=== PATIENT | female | born 2000 | race African-American/Black ===

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

== ENCOUNTER 2018-11-26 18:51 | Emergency (ER) | payer MEDICAID ==
[~2018-11-26] VITALS: Ht 160 cm; Wt 76.4 kg
[2018-11-26 18:55] VITALS: Ht 160 cm; Wt 76.4 kg
[2018-11-26] MEDS ORDERED: CLARITIN 10 MG10 MG PO (18:57)
[2018-11-26] MEDS ORDERED: VOLTAREN75 MG PO (20:54)
[2018-11-26] MEDS ORDERED: BACLOFEN20 M1 PO (20:54)
[2018-11-26 21:34] VITALS: BP 123/74
== END 2018-11-26 21:35 | disposition home or self-care (01) ==
LOC: D.ER 18:51
DX: S16.1XXA Strain of muscle, fascia and tendon at neck level, initial encounter (principal); V43.52XA Car driver injured in collision with other type car in traffic accident, initial encounter

== ENCOUNTER 2019-05-22 23:51 | Emergency (ER) | payer MEDICAID ==
[~2019-05-22] VITALS: Ht 160 cm; Wt 72.7 kg
[~2019-05-22 23:51] MED LIST changes: +BACLOFEN20 M1 PO; +CLARITIN 10 MG10 MG PO; +VOLTAREN75 MG PO
[2019-05-23 00:06] VITALS: Ht 160 cm; Wt 72.7 kg
[2019-05-23] MEDS ORDERED: FLAGYL500 MG PO (00:46)
[2019-05-23 00:59] LABS: APPEARANCE CLOUDY (CLEAR); BILIRUBIN NEGATIVE (NEGATIVE); COLOR YELLOW (YELLOW); GLUCOSE NEGATIVE (NEGATIVE); KETONE SMALL mg/dL (NEGATIVE); NITRITE NEGATIVE (NEGATIVE); PROTEIN TRACE mg/dL (NEGATIVE); UROBILINOGEN NORMAL (NORMAL)
[2019-05-23 01:02] LABS: BACTERIA MODERATE /hpf (NEGATIVE); EPITHELIAL CELLS 0-5 /hpf (0-5); MUCUS >1+ /lpf (NONE SEEN); RED CELLS - URINE 0-5 /hpf (0-5); WHITE CELLS - URINE 0-5 /hpf (NEGATIVE)
[2019-05-23 01:29] VITALS: BP 116/73
[2019-05-26 03:07] LABS: CHLAMYDIA TRACHOMATIS, NAA Negative (Negative)
== END 2019-05-23 01:30 | disposition home or self-care (01) ==
LOC: D.ER 23:51
PROVIDERS: Family Medicine
DX: N89.8 Other specified noninflammatory disorders of vagina (principal)

== ENCOUNTER 2019-06-03 16:38 | Emergency (ER) | payer MEDICAID ==
[~2019-06-03] VITALS: Ht 160 cm; Wt 73.6 kg
[~2019-06-03 16:38] MED LIST changes: +FLAGYL500 MG PO
[2019-06-03 16:42] VITALS: Ht 160 cm; Wt 73.6 kg
[2019-06-03 16:59] LABS: BASOPHILS 0.1 % (0-2); EOSINOPHILS 0.5 % (0-7); HEMATOCRIT 42.9 % (36.0-48.0); HEMOGLOBIN 14.6 g/dL (12-16); IMMATURE GRANULOCYTES 0.1 % (0-5); LYMPHOCYTES 31.1 % (15-50); MCH 29.9 pg (26.0-34.0); MCV 87.9 fL (80.0-100.0); MEAN PLATELET VOLUME 9.7 fL (7.4-10.4); MONOCYTES 11.6 % (2-11); NEUTROPHILS 56.6 % (40-80); PLATELET COUNT 322 10x3/uL (130-400); RBC 4.88 10x6/uL (4.00-5.40); RDW 12.8 % (11.5-14.5); WBC 7.4 10x3/uL (4.8-10.8)
[2019-06-03 17:00] LABS: APPEARANCE CLEAR (CLEAR); BILIRUBIN NEGATIVE (NEGATIVE); COLOR YELLOW (YELLOW); GLUCOSE NEGATIVE (NEGATIVE); KETONE SMALL mg/dL (NEGATIVE); NITRITE NEGATIVE (NEGATIVE); PROTEIN NEGATIVE (NEGATIVE); SPECIFIC GRAVITY 1.015 (1.005-1.020); UROBILINOGEN NORMAL (NORMAL)
[2019-06-03 17:07] LABS: CALC OSMOLALITY 262 mosm/kg (275-300); CALCIUM 9.3 mg/dL (8.5-10.1); CARBON DIOXIDE 28.5 mmol/L (21.0-32.0); CHLORIDE - SERUM 98 mmol/L (98-107); CREATININE - SERUM 0.8 mg/dL (0.6-1.3); GLUCOSE 87 mg/dL (74-106); POTASSIUM - SERUM 3.4 mmol/L (3.5-5.1); SODIUM 133 mmol/L (136-145); UREA NITROGEN 7 mg/dL (7-18); eGFR NON AFRICAN AMERICAN > 90 mL/min (90-120)
[2019-06-03 17:08] LABS: HCG SERUM POSITIVE (NEGATIVE)
[2019-06-03 17:33] LABS: ALBUMIN 4.1 g/dL (3.4-5.0); ALKALINE PHOSPHATASE 78 U/L (46-116); ALT (SGPT) 31 U/L (10-68); AMYLASE - SERUM 80 U/L (25-115); BILIRUBIN - TOTAL 1.02 mg/dL (0.2-1.3); HCG - QUANTITATIVE (MATERNAL) 119755 mIU/mL; LIPASE 288 U/L (73-393); PROTEIN - SERUM 8.4 g/dL (6.4-8.2)
[2019-06-03] MEDS ORDERED: ZOFRAN4 MG PO (18:09)
[2019-06-03 18:36] VITALS: BP 111/68
== END 2019-06-03 18:37 | disposition home or self-care (01) ==
LOC: D.ER 16:38
PROVIDERS: Family Medicine
DX: O21.9 Vomiting of pregnancy, unspecified (principal); Z3A.08 8 weeks gestation of pregnancy

== ENCOUNTER 2019-07-09 10:56 | Observation (INO) | payer MEDICAID ==
[~2019-07-09] VITALS: Ht 160 cm; Wt 65.0 kg
[~2019-07-09 10:56] MED LIST changes: +ZOFRAN4 MG PO
[2019-07-09] MEDS ORDERED: REGLAN10 MG PO (11:12)
[2019-07-09] MEDS ORDERED: ZOFRAN4 MG PO (11:12)
[2019-07-09 11:41] LABS: BASOPHILS 0 % (0-2); EOSINOPHILS 0.7 % (0-7); HEMATOCRIT 38.5 % (36.0-48.0); HEMOGLOBIN 13.5 g/dL (12-16); IMMATURE GRANULOCYTES 0.2 % (0-5); LYMPHOCYTES 24.8 % (15-50); MCH 30.1 pg (26.0-34.0); MCHC 35.1 g/dL (31.0-37.0); MCV 85.7 fL (80.0-100.0); MEAN PLATELET VOLUME 9.9 fL (7.4-10.4); MONOCYTES 10.4 % (2-11); NEUTROPHILS 63.9 % (40-80); PLATELET COUNT 298 10x3/uL (130-400); RBC 4.49 10x6/uL (4.00-5.40); RDW 13.5 % (11.5-14.5); WBC 4.4 10x3/uL (4.8-10.8)
--- NOTE | 2019-07-09 11:41 | NUR ---
FHT 154
[2019-07-09 11:46] LABS: APPEARANCE CLEAR (CLEAR); BILIRUBIN NEGATIVE (NEGATIVE); COLOR DK YELLOW (YELLOW); GLUCOSE NEGATIVE (NEGATIVE); KETONE LARGE mg/dL (NEGATIVE); NITRITE NEGATIVE (NEGATIVE); PROTEIN 1+ mg/dL (NEGATIVE)
[2019-07-09 11:47] LABS: BACTERIA FEW /hpf (NEGATIVE); EPITHELIAL CELLS 0-5 /hpf (0-5); RED CELLS - URINE RARE /hpf (0-5); WHITE CELLS - URINE 0-5 /hpf (NEGATIVE)
[2019-07-09 12:14] LABS: CALC OSMOLALITY 261 mosm/kg (275-300); CALCIUM 9.5 mg/dL (8.5-10.1); CARBON DIOXIDE 19.3 mmol/L (21.0-32.0); CHLORIDE - SERUM 100 mmol/L (98-107); CREATININE - SERUM 0.6 mg/dL (0.6-1.3); GLUCOSE 76 mg/dL (74-106); POTASSIUM - SERUM 3.1 mmol/L (3.5-5.1); SODIUM 133 mmol/L (136-145); UREA NITROGEN 4 mg/dL (7-18); eGFR NON AFRICAN AMERICAN > 90 mL/min (90-120)
[2019-07-09 12:42] LABS: ALBUMIN 3.4 g/dL (3.4-5.0); ALKALINE PHOSPHATASE 91 U/L (46-116); ALT (SGPT) 396 U/L (10-68); BILIRUBIN - TOTAL 1.89 mg/dL (0.2-1.3); HCG - QUANTITATIVE (MATERNAL) 72174 mIU/mL; PROTEIN - SERUM 7.6 g/dL (6.4-8.2)
[2019-07-09 14:11] VITALS: BP 110/68
--- NOTE | 2019-07-09 14:47 | NUR ---
NS @ 100ML/HR CONTINUED TO FLOOR
--- NOTE | 2019-07-09 14:55 | NUR ---
RECEIVED PT FROM ER VIA WC. PT AMBULATES TO BED PER SELF. PT HOLDING IV BAG OF NS, NOTED TO BE DISCONNECTED FROM SALINE LOCK IN LEFT AC. SITE IN LEFT AC C/D/I. DR RANKIN IN ROOM TO ASSESS PT AND EXPLAIN POC. PT VERBALIZES UNDERSTANDING.
--- NOTE | 2019-07-09 16:10 | NUR ---
PT IN HIGH FOWLERS POSITION. PT DENIES ACTIVE VOMITING SINCE ARRIVING TO UNIT AND STATES THAT SHE HASN'T HELD ANYTHING DOWN "EVER" AND THAT IS WHY SHE HERE. MEDS GIVEN ORDERED, SEE EMAR. BANANA BAG HUNG AT 333ML/HR VERBALLY ORDERED BY DR RANKIN. ADMISSION ASSESSMENTS COMPLETED, SEE FLOW SHEETS. FHTS 150S VIA DOPPLAR IN LEFT LOWER QUADRANT. BOWEL SOUNDS ACTIVE X 4. PT REPORTS PASSING FLATUS BUT DENIES HAVING BM IN AT LEAST 7 DAYS. PT REPORTS THAT SHE HAS BEEN VOMITING UP YELLOW FLUID SINCE SHE WOKE UP THIS MORNING AND THAT SHE COULDNT EVEN HOLD DOWN HER HOME MEDS TO TRY TO STOP IT. PT DENIES ANY PAIN. EXPLAINED TO PT THAT SHE IS STRICT NPO AND STRICT I&0. LIP BALM AND GLYCERIN SWABS PROVIDED PER PT REQUEST. PT DENIES FURTHER NEEDS AT THIS TIME.
[2019-07-09] MEDS ORDERED: VITAMIN B-625 MG PO (16:22)
[2019-07-09 16:52] VITALS: BP 110/67; Ht 160 cm; Wt 65.0 kg
--- NOTE | 2019-07-09 17:45 | NUR ---
PT FAMILY TO ROOM. EXPLAINED TO FAMILY PT STRICT NPO STATUS. ALL VERBALIZE UNDERSTANDING.
--- NOTE | 2019-07-09 19:30 | NUR ---
PT ASKING IF SHE CAN EAT OR DRINK SOON EXPLAINED NURSE WILL REVIEW ORDERS AND LET HER KNOW STEVE.
--- NOTE | 2019-07-09 19:40 | NUR ---
BANANA BAG COMPLETED D5 1/2 NS BOLUS BEGAN PER ORDER
--- NOTE | 2019-07-09 19:50 | NUR ---
REVIEWED ORDERS WITH PATIENT OF FLUID BOLUSES AND NPO STATUS. EXPLAINED TO THE PATIENT WE WILL KEEP HER HYDRATED AND LET HER STOMACH REST TO SEE IF THE NAUSEA AND VOMITING WILL SUBSIDE. PATIENT VERBALIZED UDNERSTANDING.
--- NOTE | 2019-07-09 20:15 | NUR ---
PT REC'D IN BED AT THIST EMMANUEL. WATCHING TV AND TEXTING. PT DENIES ANY NAUSEA. NO VOMITING NOTED. SEE ASSESSEMT PER FLOWSHEET. Ari KABA RN
[2019-07-09 20:16] VITALS: BP 99/55
--- NOTE | 2019-07-09 20:50 | NUR ---
FLUIDS CHANGED IV IN LEFT AC EITHOUT REDNESS OR SWELLING PATIENT DENIES NEEDS AT THIS TIME
--- NOTE | 2019-07-09 21:00 | NUR ---
FHTS VIA DOPPLER AT THIS TIME 145. PT VERBALIZES NO NEEDS AT THIS TIME. Ari KABA RN
--- NOTE | 2019-07-09 22:28 | NUR ---
REGLAN GIVEN SIVP. NO NEEEDS VERBALIZED. NO VOMITING NOTED. Ari KABA RN
--- NOTE | 2019-07-10 00:14 | NUR ---
SOLUMEDROL 20 MG GIVEN IVP. NO VOMITING NOTED. PT VERBALIZES NO NAUSEA. IV SITE REMIANS PATENT . Ari KABA RN
--- NOTE | 2019-07-10 03:16 | NUR ---
NEW BAG OF IV FLUID UP AT 0315. NO NAUSEA PER PATIENT AND NO VOMITING NOTE. PT WANTING TO EAT AT THIS TIME. Ari KABA. RN
[2019-07-10 07:04] LABS: ALBUMIN 2.7 g/dL (3.4-5.0); ALKALINE PHOSPHATASE 77 U/L (46-116); ALT (SGPT) 311 U/L (10-68); CALCIUM 8.6 mg/dL (8.5-10.1); CARBON DIOXIDE 18.4 mmol/L (21.0-32.0); CHLORIDE - SERUM 104 mmol/L (98-107); CREATININE - SERUM 0.5 mg/dL (0.6-1.3); POTASSIUM - SERUM 3.5 mmol/L (3.5-5.1); PROTEIN - SERUM 5.8 g/dL (6.4-8.2); SODIUM 132 mmol/L (136-145); eGFR NON AFRICAN AMERICAN > 90 mL/min (90-120)
[2019-07-10 07:07] LABS: CALC OSMOLALITY 263 mosm/kg (275-300); GLUCOSE 159 mg/dL (74-106); UREA NITROGEN 1 mg/dL (7-18)
--- NOTE | 2019-07-10 07:15 | NUR ---
CLEAR LIQUID DIET SERVED, ORDERS VERIFIED PER PT REQUEST. REASSURED HER THAT MD HAD PLACED THE ORDER AND WAS OK FOR HER TO GO AHEAD AND EAT. DENIES NAUSEA AT THIS TIME.
--- NOTE | 2019-07-10 07:45 | NUR ---
SOLU MEDROL IV SCANNED TO EMAR. PT CONTINUE TO DENY NAUSEA AND DENIES ANY NEEDS AT THIS TIME.
--- NOTE | 2019-07-10 09:30 | NUR ---
CALLED TO ROOM, PT ASKING WHEN SHE WOULD BE ABLE TO D/C HOME. UNDERSTANDS THAT MD WOULD BE CONTACTED WITH HER REQUEST.
--- NOTE | 2019-07-10 10:12 | NUR ---
DR RANKIN ON UNIT REPORT GIVEN OF PT REQUEST TO D/C, AND THAT SHE HAS NOT HAD ANY VOMITING AND DENIES NAUSEA ALSO THAT SHE WAS ABLE TO CONSUME OVER 50% OF CLEAR LIQUID DIET AT 0730. ORDERS RECEIVED FOR D/C WITH WRITTEN SCRIPTS FOR MEDROL DOSE JIAN, PEPCID 20MG, REGLAN 10MG AND ZOFRAN 4MG ODT. PRINTED INTSTRUCTIONS ON EACH SCRIPT, REFLUX AND FOODS TO AVOID DURING . SHE STATES HER UNDERSTANDING AND DENIES QUESTIONS. HAS APPOINTMENT WITH DR SHEA ON 07/18/19. IV D/C FROM LEFT AC WITH CATH INTACT.
--- NOTE | 2019-07-10 10:30 | NUR ---
VERBAL AND WRITTEN D/C INSTRUCTIONS COMPLETED. PT ASK IF SHE COULD WEIGH HERSELF PRIOR TO LEAVING. SCALE BROGHT TO ROOM..155LBS. TAKEN OUT TO CAR BY WHEELCHAIR AND HOME WITH FAMILY MEMBER.
[2019-07-11 13:09] LABS: HEPATITIS C ANTIBODY <0.1 S/CO RAT (0.0-0.9)
== END 2019-07-10 10:30 | disposition home or self-care (01) ==
LOC: D.ER 10:56 → D.LD 13:52 → OBSVTIME 13:52 → D.LD 13:52
PROVIDERS: Family Medicine; ADMIT Obstetrics & Gynecology; ATTEND Obstetrics & Gynecology
DX: O21.0 Mild hyperemesis gravidarum (principal); Z3A.14 14 weeks gestation of pregnancy

== ENCOUNTER 2019-12-28 13:52 | Inpatient (IN) | payer OTHER ==
[~2019-12-28] VITALS: Ht 160 cm; Wt 79.8 kg
[~2019-12-28 13:52] MED LIST changes: +REGLAN10 MG PO; +VITAMIN B-625 MG PO
[2019-12-29] VITALS (10 sets, daily range): BP systolic 118–143; BP diastolic 73–96; Ht 160 cm; Wt 79.8 kg
[2019-12-29] MEDS ORDERED: PRENAVITE1 TAB (06:03)
[2019-12-29 06:36] LABS: HEMATOCRIT 27.7 % (36.0-48.0); HEMOGLOBIN 8.6 g/dL (12-16); MCH 24.1 pg (26.0-34.0); MCV 77.6 fL (80.0-100.0); MEAN PLATELET VOLUME 8.9 fL (7.4-10.4); RBC 3.57 10x6/uL (4.00-5.40); RDW 15.8 % (11.5-14.5); WBC 7.2 10x3/uL (4.8-10.8)
[2019-12-29 06:38] LABS: BILIRUBIN NEGATIVE (NEGATIVE); GLUCOSE NEGATIVE (NEGATIVE); KETONE NEGATIVE (NEGATIVE); NITRITE NEGATIVE (NEGATIVE); SPECIFIC GRAVITY 1.015 (1.005-1.020); UROBILINOGEN NORMAL (NORMAL)
[2019-12-29 06:39] LABS: BACTERIA MODERATE /hpf (NEGATIVE); RED CELLS - URINE 0-5 /hpf (0-5)
--- NOTE | 2019-12-29 10:00 | NUR ---
rec'd from recovery, assessment completed, fundus firm, u-1, lochia small, rating pain 7/10, ice pack placed on incisional site, oriented to room and to call light.
--- NOTE | 2019-12-29 11:30 | NUR ---
at bedside, able to move lower extremities, john pads changed, cavazos draining clear yellow urine, fundus firm u-1
--- NOTE | 2019-12-29 12:47 | NUR ---
in room @1225, pt c/o vomiting, noted aprox 200ml emesis, medicated w/ zofran effectively, john care given. noted aprox 5 cm clot passed, fundus firm, u-1, lochia small,denies further needs at this time
--- NOTE | 2019-12-29 13:30 | NUR ---
called to bedside, pt states she vomited her chicken broth, denies nausea, states it just came up w/o warning. requesting crackers, encouraged to stick with clear liquids as ordered until tolerating liquids well
[2019-12-29 14:10] LABS: BASOPHILS 0.1 % (0-2); EOSINOPHILS 0.2 % (0-7); HEMATOCRIT 30.2 % (36.0-48.0); HEMOGLOBIN 9.4 g/dL (12-16); IMMATURE GRANULOCYTES 0.3 % (0-5); LYMPHOCYTES 10.7 % (15-50); MCH 24.9 pg (26.0-34.0); MCHC 31.1 g/dL (31.0-37.0); MEAN PLATELET VOLUME 8.5 fL (7.4-10.4); MONOCYTES 7.8 % (2-11); NEUTROPHILS 80.9 % (40-80); RBC 3.78 10x6/uL (4.00-5.40); RDW 16.4 % (11.5-14.5)
[2019-12-29 14:17] LABS: MCV 79.9 fL (80.0-100.0); PLATELET COUNT 264 10x3/uL (130-400); WBC 10.6 10x3/uL (4.8-10.8)
--- NOTE | 2019-12-29 14:18 | NUR ---
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
--- NOTE | 2019-12-29 14:22 | NUR ---
h/h results called to dr bess, no new orders rec'd
--- NOTE | 2019-12-29 15:05 | NUR ---
called to room, pt states she vomited after eating sherbert, denies nausea states "it just came up" states she has had a problem with reflux, listened to bowel sounds noted active x 4 quadrants but noted slightly sluggish. encouraged to have only ice chips until bowel sounds improve. acknowledged understanding
--- NOTE | 2019-12-29 15:24 | NUR ---
CALL TO DR SHEA, REPORT GIVEN OF PT COMPLAINT OF REFLUX W/ VOMITING. ORDERS REC'D AND NOTED
--- NOTE | 2019-12-29 15:41 | NUR ---
pt c/o itching, no rashing noted, requesting benadryl, will talk w/ dr bess
--- NOTE | 2019-12-29 17:40 | NUR ---
at bedside, pt holding attempting bottle feed, fundus firm, lochia scant, u/-1, states is beginning to feel better, may decide to try some broth in an hour or so. informed would be back around 1814 for john care, pt stated to go ahead and bring sprite and broth at that time
--- NOTE | 2019-12-29 18:10 | NUR ---
john care given, scant lochia, chicken broth and sprite given
--- NOTE | 2019-12-29 21:17 | NUR ---
RN TO PT BEDSIDE FOR SHIFT ASSESSMENT. LA CATHETER IN PLACE, 50ML IN UROMETER AT THIS TIME. 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 FUNDUS IS FIRM, MIDLINE, 2 BELOW, SCDS ON, BED IN LOWEST POSITION, SIDE RAILS UPX2, CALL LIGHT IN REACH, FRIEND AT BEDSIDE, IN CRIB AT BEDSIDE.
--- NOTE | 2019-12-29 23:43 | NUR ---
RN TO BEDSIDE, LA CATHETER REMOVED 375ML IN LA BAG, IV FLUIDS D/C'D. PT ASSISTED TO AMBULATORY POSITION, PT TO BATHROOM, UNABLE TO VOID AT THIS TIME. PT GIVEN SPONGE BATH, LINENS CHANGED, PT PROVIDED WITH DISPOSABLE BRIEFS AND ZANDER PADS, DRESSING TO ABDOMINAL INCISION CLEAN, DRY, AND INTACT. PT ABULATED BACK TO BED WITH RN STANDBY ASSISTANCE. PT'S GAIT STEADY. BED IN LOWEST POSITION, CALL LIGHT IN REACH, SIDE RAILS UPX2.
--- NOTE | 2019-12-30 01:30 | NUR ---
PT REC'D IN BED ASLEEP AT THIS TIME. RESPS EVEN AND UNLABORED. Ari KABA RN
[2019-12-30 04:13] VITALS: BP 129/81
--- NOTE | 2019-12-30 04:23 | NUR ---
RN TO PT BEDSIDE FOR ROUNDING, VSS. PT STATES PAIN IS 5/10, NORCO 10 PO GIVEN PER MD ORDERS. FUNDUS FIRM, MIDLINE, 2 BELOW, PT VOIDED 150ML TO URINE HAT. PT STATES ALL OTHER NEED CURRENTLY MET. BED IN LOWEST POSITION, CALL LIGHT IN REACH, SIDE RAILS UPX2.
[2019-12-30 06:08] LABS: RAPID PLASMA REAGIN Non Reactive (Non Reactive)
[2019-12-30 07:18] VITALS: BP 131/83
--- NOTE | 2019-12-30 07:18 | NUR ---
AM ASSESSMENT COMPLETED, SITTING UPRIGHT IN BED, SKIN WARM AND DRY, COLOR WNL, RESP EVEN AND UNLABORED, LUNGS CTAB, HEART RRR, ABD SOFT AND MILDLY TENDER TO LIGHT TOUCH, FUNDUS FIRM AT U/3 AND MIDLINE, DENIES PASSING ANY CLOTS SINCE YESTERDAY, LOCHIA RUBRA MODERATE AMOUNT, DENIES PASSING FLATUS, LOW TRANSVERSE PRESSURE DRESSING IN PLACE OVER ABDOMINAL INCISION WITHOUT DRAINAGE, RATES PAIN 4-5 ON NUMERIC PAIN SCALE AT THIS TIME, REVIEWED NEXT DOSE AVAILABLE TIME AND PT STATES UNDERSTANDING. REVIEWED POC FOR TODAY TO INCLUDE AMBULATION IN HALLS, SHOWER, AND PAIN MANAGEMENT. PT STATES UNDERSTANDING OF ALL INFORMATION REVIEWED. PT MOTHER AT BS WITH PT'S IN ARMS, CALL LIGHT WITHIN EASY REACH OF PT, SIDE RAILS UP X2, BED IN LOW POSITION. CONTINUE TO MONITOR.
[2019-12-30 07:21] LABS: BASOPHILS 0.1 % (0-2); EOSINOPHILS 0.6 % (0-7); HEMATOCRIT 29.3 % (36.0-48.0); HEMOGLOBIN 8.9 g/dL (12-16); IMMATURE GRANULOCYTES 0.3 % (0-5); LYMPHOCYTES 10.7 % (15-50); MCH 24.2 pg (26.0-34.0); MCHC 30.4 g/dL (31.0-37.0); MCV 79.6 fL (80.0-100.0); MEAN PLATELET VOLUME 8.7 fL (7.4-10.4); MONOCYTES 8.4 % (2-11); NEUTROPHILS 79.9 % (40-80); PLATELET COUNT 280 10x3/uL (130-400); RBC 3.68 10x6/uL (4.00-5.40); RDW 16.4 % (11.5-14.5); WBC 10.7 10x3/uL (4.8-10.8)
--- NOTE | 2019-12-30 08:00 | NUR ---
pt c/o incisional pain requests prn meds, same provided. cup of ice water also encouraged and provided. no other needs voiced at this time, continue to monitor.
--- NOTE | 2019-12-30 08:05 | NUR ---
DR SHEA TO PT ROOM, ABD DRESSING REMOVED, INCISION CDI WITH JENA, WELL-APPROXIMATED, NO REDNESS, DRAINAGE, OR SWELLING TO SITE. MD DISCUSSED PLAN OF CARE, PT STATES UNDERSTANDING.
--- NOTE | 2019-12-30 09:20 | NUR ---
PT TRANSFERRED TO ROOM 1278-A PER PT REQUEST DUE TO THERMOSTAT ISSUES IN PREVIOUS ROOM. PT AMBULATORY IN HALLS, NAD NOTED, NO SOB, NO DIZZINESS. TOLERATES ACTIVITY WELL. CALL LIGHT WITHIN EASY REACH OF PT, ROOM ORIENTATION COMPLETED. PT STATES UNDERSTANDING.
--- NOTE | 2019-12-30 10:35 | NUR ---
rounds completed, pt denies c/o pain, sitting up in bed, showered, nad noted. call light and personal belongings in easy reach. will monitor.
--- NOTE | 2019-12-30 11:25 | NUR ---
ROUNDS COMPLETED. NAD, RESP EVEN AND UNLABORED, INCISION CDI WITH JENA TO LOW ABDOMEN, PT DENIES HEAVY LOCHIA OR PASSAGE OF CLOTS. TOLERATING PO INTAKE, NO N/V, VOIDING WITHOUT DIFFICULTY. CUP OF ICE AND SODA PROVIDED PER REQUEST.
--- NOTE | 2019-12-30 12:58 | NUR ---
pt c/o generalized itching and incisional pain rated 5 or 6 on numeric scale 1-10. prn benadryl and norco given per orders; tolerates well. pt visitor present in pt room with infant in arms, nad noted. call light in easy reach, will monitor.
[2019-12-30 13:09] VITALS: BP 131/85
--- NOTE | 2019-12-30 13:20 | NUR ---
PT RESTING WITH EYES CLOSED, LIGHTS DIMMED IN ROOM, CALL LIGHT IN EASY REACH, RESP EVEN AND UNLABORED. NAD NOTED, NO PHYSICAL S/SX PAIN OR DISCOMFORT NOTED. WILL MONITOR.
--- NOTE | 2019-12-30 14:42 | NUR ---
PT REPORTING SOME ABDOMINAL CRAMPING AND DISCOMFORT AND WITH C/O GENERALIZED ITCHING. PRN MOTRIN GIVEN, DISCUSSED MD ORDERS AND PLAN OF CARE FOR ITCHING AT THIS TIME AND REVIEWED OPTIONS, PT STATES WILL TAKE MOTRIN FOR NOW AND LET THIS RN KNOW IF FURTHER NEEDS PERTAINING TO ITCHING. WILL MONITOR FOR EFFECTIVENESS.
--- NOTE | 2019-12-30 15:30 | NUR ---
PT TALKING ON PHONE, RESP EVEN AND UNLABORED, SMILING, IN ARMS. NAD NOTED. DENIES NEEDS OR CONCERNS ON INQUIRY AT THIS TIME. CONTINUE TO MONITOR.
--- NOTE | 2019-12-30 16:14 | NUR ---
PT C/O CONTINUED ITCHING, REQUESTS CHANGE IN MED OR DOSAGE. DR SHEA PAGED WITH IMMEDIATE CALLBACK, ORDER RECEIVED FOR ADDITIONAL 25MG PO NOW AND THEN MAY HAVE 50 MG PO Q6 HOURS PRN FOR RELIEF OF ITCHING. INFORMATION RELAYED TO PT, PT STATES UNDERSTANDING AND AGREEABLE TO POC.
--- NOTE | 2019-12-30 17:09 | NUR ---
ROUNDS COMPLETED, PT STATES ORAL BENADRYL MORE EFFECTIVE FOR RELIEF OF ITCHING, DENIES OTHER NEEDS AT PRESENT. WILL CONTINUE TO MONITOR.
--- NOTE | 2019-12-30 18:24 | NUR ---
rounds completed, pt reporting pain 5-6 out of 10 on numeric scale, prn med given with sips lemon chenega soda. also reports +bm without difficulty, ambulatory in room, reviewed need to ambulate in halls again this evening. pt states understanding and intent to do so after prn pain med therapeutic level. saline lock discontinued, catheter tip intact and shown to patient, pressure dressing applied to left hand site and secured with clear tape. will continue to monitor.
[2019-12-30 18:54] VITALS: BP 126/86
--- NOTE | 2019-12-30 19:30 | NUR ---
PT AND FRIEND AMBULATORY OFF UNIT TO ED DOOR TO RECEIVE FOOD HER MOTHER IS SENDING TO HER.
--- NOTE | 2019-12-30 19:45 | NUR ---
PT AND FRIEND RETURN AMBULTORY TO UNIT W/FOOD. BOTH RETURN TO PT'S ROOM. NO NEEDS VOICED AT THIS TIME.
--- NOTE | 2019-12-30 20:30 | NUR ---
ROUNDS MADE. PT SITTING UP IN BED FEEDING BABY. PAIN AND NEEDS ASSESSED. PT REPORTS INCISIONAL PAIN 4/10. REQUEST A CUP OF ICE AND A CUP OF WATER. BOTH SERVED. PT INFORMED PAIN MEDICATION WILL BE BROUGHT AT THE NEXT AVAILABLE TIME SHE MAY RECEIVEEEEE IT. PT VERBALIZES UNDERSTANDING AND AGREEABLE.
--- NOTE | 2019-12-30 21:08 | NUR ---
THIS RN TO BEDSIDE TO MEDICATE PT WITH MOTRIN 600MG PO. PT INFORMED SHE MAY HAVE NORCO AT 2230. PT VERBALZIES UNDERSTANDING. RATES PAIN 4/10. STATES SHE'S GETTING READY TO GO WALK IN THE HALLS AGAIN. CURRENTLY TENDING TO BABY. NO NEEDS VOICED AT THIS TIME.
--- NOTE | 2019-12-30 22:20 | NUR ---
THIS RN TO BEDSIDE FOR PAIN REASSESSMENT. PT REPORTS ABD PAIN IS STILL PRESENT. NORCO OFFEERED. PT ACCEPTS. SEE EMAR. PT DECLINES OFFER TO BRING HER BENADRYL AT THIS TIME. NO NEEDS VOICED AT THIS TIME.
--- NOTE | 2019-12-30 23:15 | NUR ---
THIS RN TO BEDSIDE FOR PAIN REASSESSMENT. PT CURRENTLY RATES PAIN 5/10. STATES "IT'S REALLY ABOUT THE SAME." NO FURTHER PAIN INTERVENTIONS REQUESTED AT THIS TIME. PT IS CURRENTLY SITTING UP IN BED W/BABY ON HER CHEST. DENIES NEEDS.
--- NOTE | 2019-12-31 01:06 | NUR ---
THIS RN TO BEDSIDE FOR ROUNDING. PT LYING AWAKE IN BED. NO REPORT OF PAIN AND DENIES NEEDS.
--- NOTE | 2019-12-31 03:10 | NUR ---
THIS RN TO BEDSIDE FOR ROUNDING. PT SITTING UP CARING FOR BABY. PAIN AND NEEDS ASSESSED. PT REPORTS SHE IS HAVING ABD CRAMPING AT HER INCISION SITE THAT SHE RATES 6/10. REQUEST BOTH NORCO 10/325MG 1TAB AND MOTRIN AT TTHIS TIME. BOTH ADMIN. SEE EMAR. FRESH ICE WATER SERVED. PT DENIES FURTHER NEEDS.
--- NOTE | 2019-12-31 04:00 | NUR ---
PAIN REASSESSMENT DONE. RATES PAIN 4/10. NO NEEDS VOICED.
--- NOTE | 2019-12-31 06:00 | NUR ---
ROUNDS MADE. PT SITTING UP IN BED AWAKE WITH BABY AR HER SIDE. PAIN AND NEEDS ASSESSED. PT REPORTS PAIN /. STATES IT'S NOT BAD. REQUEST A LEMON-BEAVER SODA SERVED. DENIES FURTHER NEEDS AT THIS TIME.
[2019-12-31 07:23] VITALS: BP 135/83
--- NOTE | 2019-12-31 07:29 | NUR ---
AM ASSESSMENT COMPLETED, SKIN WARM AND DRY, VSS, AFEBRILE, RESP EVEN AND UNLABORED, SITTING UPRIGHT IN BED WITH INFANT IN ARMS ON ENTRY TO ROOM, ALERT AND APPROPRIATELY RESPONSIVE, LUNGS CTAB, HEART RRR WITHOUT AUDIBLE MURMUR, BOWEL SOUNDS PRESENT X4 QUADS, ABD SOFT AND MILDLY TENDER, FUNDUS FIRM AT U/3 AND MIDLINE, PASSING FLATUS, LOCHIA RUBRA MODERATE AMOUNT, DENIES CLOTS, LOW TRANSVERSE INCISION CDI WITH JENA, WELL-APPROXIMATED, NO REDNESS, WARMTH, EDEMA, OR DRAINAGE NOTED. ENCOURAGED USE OF ABD SPLINTING WHEN OOB AND AMBULATING PRN, MATUTE FREELY, NEGATIVE RASHEEDA'S SIGN B LE, 1+ B LE NONPITTING EDEMA NOTED, PEDAL PULSES STRONG/=/+2 B. REVIEWED PLAN OF CARE, PAIN MANAGEMENT, AMBULATION, TCDB/IS USE, HOME CARE AND FOLLOW UP INSTRUCTIONS, PT STATES WOULD LIKE DEPO-PROVERA SHOT FOR CONTROL PLANNING PRIOR TO DISCHARGE. STATES UNDERSTANDING OF ALL INFORMATION DISCUSSED THIS AM. CALL LIGHT IN EASY REACH OF PT, BED IN LOW POSITION, BED BRAKES LOCKED, SR UP X2. WILL MONITOR FOR CHANGE IN CONDITION.
--- NOTE | 2019-12-31 08:45 | NUR ---
ROUNDS COMPLETED, NAD NOTED. RESP EVEN AND UNLABORED, DENIES NEEDS OR CONCERNS, CALL LIGHT IN EASY REACH. WILL MONITOR.
[2019-12-31] MEDS ORDERED: HYDROCODON-ACE1 EA10 PO (08:54)
[2019-12-31] MEDS ORDERED: IBUPROFEN600 MG PO (08:55)
--- NOTE | 2019-12-31 09:04 | NUR ---
PAGED DR SHEA TO INQUIRE RE: PT REQUEST FOR DEPO-PROVERA PRIOR TO DISCHARGE, ORDER RECEIVED, NOTED, AND RELAYED TO PT.
--- NOTE | 2019-12-31 09:04 | NUR ---
DR SHEA TO PT ROOM FOR DAILY ROUNDS.
--- NOTE | 2019-12-31 10:05 | NUR ---
DISCHARGE INSTRUCTIONS WITH HANDOUTS PROVIDED PER FACILITY POLICY. DENIES QUESTIONS, REMINDED PT OF F/U APPOINTMENT ON 01/03 AT 0800 FOR STAPLE REMOVAL, 12 WEEKS FOR NEXT DOSE DEPO-PROVERA, AND TO SCHEDULE NEXT FOLLOW UP APPOINTMENT PER DR SHEA DIRECTIONS WITH NEXT VISIT. STATES UNDERSTANDING OF ALL DISCUSSED.
--- NOTE | 2019-12-31 10:15 | NUR ---
ROUNDS COMPLETED, DENIES C/O PAIN OR CONCERNS AT PRESENT. INFANT IN ARMS, NAD NOTED. WILL MONITOR.
--- NOTE | 2019-12-31 11:20 | NUR ---
PT INQURING ABOUT DISCHARGE PROCESS FOR NB. DISCUSSED FACILITY PROTOCOL AND NURSERY STAFF TRIAGE AND DISCHARGE PROCESS. PT STATES UNDERSTANDING. RELAYED NURSERY STAFF WILL PROVIDED DISCHARGE INSTRUCTIONS QUICKLY POSSIBLE AND THIS RN WILL LET HER KNOW IF/WHEN SITUATION CHANGES. PT NAD, RESP EVEN AND UNLABORED, CONTINUE TO MONITOR.
--- NOTE | 2019-12-31 12:11 | NUR ---
ROUNDS COMPLETED, NAD NOTED, TAKEN TO PT WITH INSTRUCTIONS ON DISCHARGE PROTOCOL PROVIDED. PT STATES UNDERSTANDING.
--- NOTE | 2019-12-31 12:35 | NUR ---
PT DISCHARGED TO HOME WITH SECURED IN CARSEAT VIA WC TO PRIVATE AUTO. NAD NOTED.
== END 2019-12-31 12:35 | disposition home or self-care (01) | DRG 788 ==
LOC: D.LD 12-29 05:24 → D.SDCHOLD 12-29 07:30 → D.LD 12-29 10:30
PROVIDERS: ADMIT Obstetrics & Gynecology; ATTEND Obstetrics & Gynecology
PROC: 10D00Z1 Extraction of Products of Conception, Low, Open Approach (ICD-10-PCS; principal; 2019-12-29 07:30)
DX: O99.824 Streptococcus B carrier state complicating childbirth (principal); Z3A.39 39 weeks gestation of pregnancy; Z37.0 Single live birth